=== PATIENT | male | born 1980 | race Two or more races ===

== ENCOUNTER 2019-12-02 11:09 | Emergency (ER) | payer OTHER ==
[~2019-12-02] VITALS: Ht 180.3 cm; Wt 106.0 kg
[2019-12-02 13:05] VITALS: BP 158/84
== END 2019-12-02 13:06 | disposition home or self-care (01) ==
LOC: ER 11:09
DX: J45.909 Unspecified asthma, uncomplicated (principal); Z88.0 Allergy status to penicillin
CPT/HCPCS: 99283